=== PATIENT | male | born 1945 | race Two or more races ===

== ENCOUNTER 2022-07-30 13:11 | Inpatient (IN) | payer OTHER ==
[~2022-07-30] VITALS: Ht 172.7 cm; Wt 66.3 kg
[2022-07-30 14:15] LABS: Basophils # (auto) 0 10 ^3/uL (0-0.2); Basophils % (auto) 0.4 % (0.0-2.0); Eosinophils # (auto) 0.1 10 ^3/uL (0-0.8); Hematocrit 32.6 % (41.0-53.0); Hemoglobin 11.3 g/dL (13.5-17.5); Lymphocytes # (auto) 0.8 10 ^3/uL (0.4-5.4); Lymphocytes % (auto) 13.4 % (10.0-50.0); Mean Corpuscular Hemoglobin 31.8 pg (28.0-32.0); Mean Corpuscular Hgb Conc. 34.7 g/dL (32.0-36.0); Mean Corpuscular Volume 91.7 fL (80.0-100.0); Monocytes # (auto) 0.7 10 ^3/uL (0-1.3); Monocytes % (auto) 12.6 % (0.0-12.0); Neutrophils # (auto) 4.1 10 ^3/uL (1.6-8.6); Neutrophils % (auto) 72.6 % (37.0-80.0); Red Blood Cells 3.56 10^6/uL (4.5-5.90); Red Cell Distribution Width 14.2 % (11.8-14.3); White Blood Cell 5.7 10^3/uL (4.4-10.8)
[2022-07-30 14:32] LABS: Potassium 4.5 mmol/L (3.5-5.1)
[2022-07-30 14:38] LABS: Albumin 3.8 g/dL (3.4-5.0); Bilirubin, Total 0.5 mg/dL (0.2-1.0); Magnesium 2.3 mg/dL (1.6-2.6); Total Protein 6.7 g/dL (6.4-8.2)
[2022-07-30 14:46] LABS: CRP High Sensitivity 0.02 mg/dL (< 0.3)
[2022-07-30] MEDS ORDERED: SODIUM CHLORIDE 0.9% 1,000 ML IV ONE (15:00)
[2022-07-30] MEDS ORDERED: cefTRIAXone 1GM/50ML D5W 50 ML IV ONE (15:00)
[2022-07-30 16:36] LABS: Urine Bacteria FEW /hpf (None Seen); Urine Blood Negative /uL (Negative); Urine Specific Gravity 1.023 (1.001-1.035); Urine WBC <1 /hpf (0 - 3)
[2022-07-30] MEDS ORDERED: DOCUSATE SOD 100 MG CAP PO PRN (21:30)
[2022-07-30] MEDS ORDERED: ONDANSETRON HCL 4 MG/2 ML VIAL IV PRN (21:30)
[2022-07-30] MEDS ORDERED: HYDROcodone-ACET 5/325MG TAB PO PRN (21:30)
[2022-07-30] MEDS ORDERED: ACETAMINOPHEN 325 MG TAB PO PRN (21:30)
[2022-07-30] MEDS: CARBIDOPA W LEVODOPA 25/100mg TABLET PO SCH (22:00)
[2022-07-30] MEDS: SODIUM CHLORIDE 0.9% 1,000 ML IV SCH (22:46)
[2022-07-30] MEDS ORDERED: NITROGLYCERIN 0.4 MG SL TAB SL PRN (23:45)
[2022-07-30] MEDS ORDERED: MORPHINE SULFATE INJ 2 MG/ml SYRG IV PRN (23:45)
[2022-07-31] VITALS (7 sets, daily range): BP systolic 109–194; BP diastolic 59–108
[2022-07-31] MEDS: LEVOTHYROXINE SODIUM 25 MCG TAB PO SCH (05:47)
[2022-07-31] MEDS: CARBIDOPA W LEVODOPA 25/100mg TABLET PO SCH ×4 (05:47→21:05)
[2022-07-31] MEDS: hydrALAZINE HCL 20 MG/ML VL IV PRN ×2 (06:17→17:26)
[2022-07-31 07:01] LABS: Basophils # (auto) 0 10 ^3/uL (0-0.2); Basophils % (auto) 0.7 % (0.0-2.0); Eosinophils # (auto) 0.1 10 ^3/uL (0-0.8); Eosinophils % (auto) 1.7 % (0.0-7.0); Hematocrit 34.4 % (41.0-53.0); Lymphocytes # (auto) 0.7 10 ^3/uL (0.4-5.4); Mean Corpuscular Hemoglobin 31.9 pg (28.0-32.0); Mean Corpuscular Volume 91.2 fL (80.0-100.0); Monocytes # (auto) 0.6 10 ^3/uL (0-1.3); Monocytes % (auto) 10.3 % (0.0-12.0); Neutrophils # (auto) 4.7 10 ^3/uL (1.6-8.6); Neutrophils % (auto) 76.3 % (37.0-80.0); Nucleated Red Blood Cells % 0.1 %; Red Blood Cells 3.77 10^6/uL (4.5-5.90); Red Cell Distribution Width 14.2 % (11.8-14.3); White Blood Cell 6.2 10^3/uL (4.4-10.8)
[2022-07-31 07:33] LABS: Calcium 8.6 mg/dL (8.5-10.1); Potassium 3.9 mmol/L (3.5-5.1)
[2022-07-31 07:39] LABS: Albumin 3.6 g/dL (3.4-5.0); BUN/Creatinine Ratio 21.1 (10.0-20.0); Bilirubin, Total 0.7 mg/dL (0.2-1.0); Total Protein 6.8 g/dL (6.4-8.2)
[2022-07-31] MEDS ORDERED: CARB-80 PO (07:56)
[2022-07-31] MEDS ORDERED: LEVO25TA6 PO (07:56)
[2022-07-31] MEDS ORDERED: RASA1TAB4 PO (07:56)
[2022-07-31] MEDS: ENOXAPARIN SOD 30 MG/0.3 ML SYRINGE SC SCH (09:00)
[2022-07-31] MEDS: cefTRIAXone 1GM/50ML D5W 50 ML IV SCH (09:01)
[2022-07-31] MEDS: SODIUM CHLORIDE 0.9% 1,000 ML IV SCH (13:45)
[2022-07-31] MEDS ORDERED: SODIUM CHLORIDE 0.9% 500 ML IV ONE (19:45)
[2022-08-01] VITALS (7 sets, daily range): BP systolic 109–179; BP diastolic 60–98
[2022-08-01] MEDS: CARBIDOPA W LEVODOPA 25/100mg TABLET PO SCH ×4 (07:08→21:30)
[2022-08-01] MEDS: LEVOTHYROXINE SODIUM 25 MCG TAB PO SCH (07:08)
[2022-08-01] MEDS: SODIUM CHLORIDE 0.9% 1,000 ML IV SCH ×2 (07:08→09:18)
[2022-08-01] MEDS: cefTRIAXone 1GM/50ML D5W 50 ML IV SCH (09:19)
[2022-08-01] MEDS: ENOXAPARIN SOD 30 MG/0.3 ML SYRINGE SC SCH (09:29)
[2022-08-01] MEDS: ENALAPRILAT 1.25 MG/ML-1ML VIAL IV PRN ×4 (13:14→22:30)
[2022-08-01] MEDS: ADVIL PM PO SCH (21:30)
[2022-08-02] VITALS (7 sets, daily range): BP systolic 114–182; BP diastolic 51–94
[2022-08-02] MEDS: LEVOTHYROXINE SODIUM 25 MCG TAB PO SCH (06:09)
[2022-08-02] MEDS: CARBIDOPA W LEVODOPA 25/100mg TABLET PO SCH ×5 (06:09→22:48)
[2022-08-02] MEDS: ENALAPRILAT 1.25 MG/ML-1ML VIAL IV PRN (06:10)
[2022-08-02] MEDS: cefTRIAXone 1GM/50ML D5W 50 ML IV SCH (09:23)
[2022-08-02] MEDS: ENOXAPARIN SOD 30 MG/0.3 ML SYRINGE SC SCH (09:26)
[2022-08-02] MEDS: SODIUM CHLORIDE 0.9% 1,000 ML IV SCH (18:23)
[2022-08-02 20:19] LABS: Folate (Folic Acid) 18.51 ng/mL (5.38-24)
[2022-08-02] MEDS: SELEGILINE 5 MG PO SCH (22:00)
[2022-08-02] MEDS: ADVIL PM PO SCH (22:48)
[2022-08-03] MEDS: ENALAPRILAT 1.25 MG/ML-1ML VIAL IV PRN ×2 (04:25→09:26)
[2022-08-03] MEDS: SODIUM CHLORIDE 0.9% 1,000 ML IV SCH (04:32)
[2022-08-03 05:00] VITALS: BP 185/94
[2022-08-03] MEDS: LEVOTHYROXINE SODIUM 25 MCG TAB PO SCH (07:17)
[2022-08-03] MEDS: CARBIDOPA W LEVODOPA 25/100mg TABLET PO SCH ×4 (07:17→18:07)
[2022-08-03 08:10] VITALS: BP 165/81
[2022-08-03] MEDS: ENOXAPARIN SOD 30 MG/0.3 ML SYRINGE SC SCH (09:26)
[2022-08-03] MEDS: cefTRIAXone 1GM/50ML D5W 50 ML IV SCH (09:28)
[2022-08-03] MEDS ORDERED: LEVO500T31 PO (09:51)
[2022-08-03] MEDS: SELEGILINE 5 MG PO SCH (10:00)
[2022-08-03] MEDS ORDERED: CARB-80 PO (10:05)
[2022-08-03 12:10] VITALS: BP 124/57
[2022-08-03 16:10] VITALS: BP 142/70
[2022-08-04] MEDS ORDERED: ENOXAPARIN SOD 40 MG/0.4 ML SYRINGE SC SCH (10:00)
== END 2022-08-03 19:40 | disposition home health service (06) | DRG 194 ==
LOC: ER 13:11 → TELE 23:45 → TELE-CENTR 07-31 02:51
PROVIDERS: ADMIT Nurse Practitioner Family; ATTEND Internal Medicine Geriatric Medicine
DX: J18.9 Pneumonia, unspecified organism (principal); E87.1 Hypo-osmolality and hyponatremia; E03.9 Hypothyroidism, unspecified; E86.0 Dehydration; G20 Parkinson's disease; H53.2 Diplopia; I10 Essential (primary) hypertension
CPT/HCPCS: 36415; 70450; 71045; 72125; 80053; 81001; 82607; 82746; 82962; 83605; 83735; 84443; 84484; 85025; 86141; 93005; 93971; 96361; 96365; 96375; 97110; 97116; 97163; 97530; G0378; J0696

== ENCOUNTER 2023-06-09 14:51 | Inpatient (IN) | payer OTHER ==
[~2023-06-09] VITALS: Ht 172.7 cm; Wt 67.6 kg
[~2023-06-09 14:51] MED LIST: CARB-118 PO; LEVO25TA6 PO; LEVO500T31 PO; RASA1TAB4 PO
[2023-06-09 16:00] LABS: Urine Bacteria NONE SEEN /hpf (None Seen); Urine Blood Negative /uL (Negative); Urine Clarity Clear (Clear); Urine Color Yellow (Yellow); Urine Protein, UAD Negative (Negative); Urine Specific Gravity 1.024 (1.001-1.035); Urine Urobilinogen Normal (Negative); Urine WBC <1 /hpf (0 - 3); Urine pH 5.5 (5.0-8.0)
[2023-06-09 16:06] LABS: Basophils # (auto) 0 10 ^3/uL (0-0.2); Basophils % (auto) 0.5 % (0.0-2.0); Eosinophils # (auto) 0.1 10 ^3/uL (0-0.8); Eosinophils % (auto) 2.2 % (0.0-7.0); Hemoglobin 11.5 g/dL (13.5-17.5); Lymphocytes % (auto) 16.4 % (10.0-50.0); Mean Corpuscular Hemoglobin 32.4 pg (28.0-32.0); Mean Corpuscular Hgb Conc. 33.8 g/dL (32.0-36.0); Mean Corpuscular Volume 95.7 fL (80.0-100.0); Monocytes # (auto) 0.7 10 ^3/uL (0-1.3); Monocytes % (auto) 10.4 % (0.0-12.0); Neutrophils # (auto) 4.5 10 ^3/uL (1.6-8.6); Neutrophils % (auto) 70.5 % (37.0-80.0); Red Blood Cells 3.55 10^6/uL (4.5-5.90); Red Cell Distribution Width 14.7 % (11.8-14.3); White Blood Cell 6.4 10^3/uL (4.4-10.8)
[2023-06-09 16:13] LABS: Amphetamine Screen, Urine Neg (NEGATIVE); Barbiturate Scree,Urine Neg (NEGATIVE); Benzodiazephine Screen, Urine Neg (NEGATIVE); Cannabinoid Screen, Urine Neg (NEGATIVE); Cocaine Screen, Urine Neg (NEGATIVE); Opiate Scree,Urine Neg (NEGATIVE); Phencyclidine Screen, Urine Neg (NEGATIVE)
[2023-06-09 16:26] LABS: Albumin 4.2 g/dL (3.2-4.8); Alkaline Phosphatase 40 U/L (46-116); Anion Gap 2 (5-15); Aspartate Aminotransferase 29 U/L (13-40); BUN/Creatinine Ratio 33.7 (10.0-20.0); Blood Urea Nitrogen 28 mg/dL (9-23); Calcium 9.4 mg/dL (8.7-10.4); Carbon Dioxide 29 mmol/L (20-30); Chloride 103 mmol/L (98-107); Glucose 103 mg/dL (74-106); Magnesium 2.1 mg/dL (1.6-2.6); Potassium 4.4 mmol/L (3.5-5.1); Sodium 134 mmol/L (136-145)
[2023-06-09 16:27] LABS: Bilirubin, Total 0.4 mg/dL (0.2-1.0); Total Protein 6.7 g/dL (5.7-8.2)
[2023-06-09 16:29] LABS: Alanine Aminotransferase < 9 U/L (7-40)
[2023-06-09 16:41] LABS: Blood Alcohol < 3.0 mg/dL (<10)
[2023-06-10] VITALS (9 sets, daily range): BP systolic 120–179; BP diastolic 65–91; PULSE 70–95; RESP 16–20; TEMP 97.1–98.1; O2SAT 93–98
[2023-06-10] MEDS ORDERED: ACETAMINOPHEN 325 MG TAB PO PRN (00:15)
[2023-06-10] MEDS ORDERED: NITROGLYCERIN 0.4 MG SL TAB SL PRN (00:15)
[2023-06-10] MEDS ORDERED: ONDANSETRON HCL 4 MG/2 ML VIAL IV PRN (00:15)
[2023-06-10] MEDS ORDERED: MORPHINE SULFATE INJ 2 MG/ml SYRG IV PRN (00:15)
[2023-06-10] MEDS: SODIUM CHLORIDE 0.9% 1,000 ML IV SCH (00:15)
[2023-06-10 05:01] LABS: Basophils # (auto) 0 10 ^3/uL (0-0.2); Basophils % (auto) 0.4 % (0.0-2.0); Eosinophils # (auto) 0.2 10 ^3/uL (0-0.8); Eosinophils % (auto) 3.2 % (0.0-7.0); Hematocrit 34.4 % (41.0-53.0); Hemoglobin 11.9 g/dL (13.5-17.5); Lymphocytes % (auto) 16.6 % (10.0-50.0); Mean Corpuscular Hemoglobin 32.7 pg (28.0-32.0); Mean Corpuscular Hgb Conc. 34.5 g/dL (32.0-36.0); Mean Corpuscular Volume 94.8 fL (80.0-100.0); Monocytes # (auto) 0.6 10 ^3/uL (0-1.3); Monocytes % (auto) 9.7 % (0.0-12.0); Neutrophils # (auto) 4.2 10 ^3/uL (1.6-8.6); Neutrophils % (auto) 70.1 % (37.0-80.0); Red Blood Cells 3.63 10^6/uL (4.5-5.90); Red Cell Distribution Width 14.4 % (11.8-14.3); White Blood Cell 5.9 10^3/uL (4.4-10.8)
[2023-06-10 05:18] LABS: Albumin 4.2 g/dL (3.2-4.8); Alkaline Phosphatase 40 U/L (46-116); Aspartate Aminotransferase 31 U/L (13-40); BUN/Creatinine Ratio 25.3 (10.0-20.0); Bilirubin, Total 0.6 mg/dL (0.2-1.0); Blood Urea Nitrogen 19 mg/dL (9-23); Calcium 9.4 mg/dL (8.5-10.1); Carbon Dioxide 30 mmol/L (20-30); Chloride 105 mmol/L (98-107); Glucose 88 mg/dL (74-106); Potassium 3.8 mmol/L (3.5-5.1); Sodium 134 mmol/L (136-145); Total Protein 6.7 g/dL (5.7-8.2)
[2023-06-10 05:20] LABS: Alanine Aminotransferase < 9 U/L (7-40); Anion Gap -1 (5-15)
[2023-06-10] MEDS: CARBIDOPA W LEVODOPA 25/100mg TABLET PO SCH ×3 (06:01→21:19)
[2023-06-10] MEDS: LEVOTHYROXINE SODIUM 25 MCG TAB PO SCH (06:04)
[2023-06-10] MEDS: hydrALAZINE HCL 20 MG/ML VL IV PRN (06:47)
[2023-06-10] MEDS: HYDROcodone-ACET 5/325MG TAB PO PRN (11:02)
[2023-06-10] MEDS ORDERED: CARBIDOPA W LEVODOPA 25/100mg TABLET PO SCH ×2 (12:00→21:00)
[2023-06-10 21:25] LABS: COVID19 ANTIGEN SOFIA FIA NEGATIVE (NEGATIVE); Rapid Influenza A Negative (Negative); Rapid Influenza B Negative (Negative)
[2023-06-10] MEDS: MIRTAZAPINE 30 MG TAB PO PRN (23:01)
[2023-06-11 06:17] LABS: Basophils # (auto) 0 10 ^3/uL (0-0.2); Basophils % (auto) 0.2 % (0.0-2.0); Eosinophils # (auto) 0.1 10 ^3/uL (0-0.8); Eosinophils % (auto) 0.8 % (0.0-7.0); Hematocrit 35.7 % (41.0-53.0); Hemoglobin 12.1 g/dL (13.5-17.5); Lymphocytes # (auto) 0.6 10 ^3/uL (0.4-5.4); Mean Corpuscular Hemoglobin 32.6 pg (28.0-32.0); Mean Corpuscular Volume 95.9 fL (80.0-100.0); Monocytes # (auto) 0.8 10 ^3/uL (0-1.3); Neutrophils # (auto) 8.7 10 ^3/uL (1.6-8.6); Red Blood Cells 3.72 10^6/uL (4.5-5.90); White Blood Cell 10.3 10^3/uL (4.4-10.8)
[2023-06-11 06:24] LABS: Albumin 4.3 g/dL (3.2-4.8); Alkaline Phosphatase 42 U/L (46-116); Anion Gap 6 (5-15); Aspartate Aminotransferase 31 U/L (13-40); BUN/Creatinine Ratio 19.6 (10.0-20.0); Blood Urea Nitrogen 20 mg/dL (9-23); Calcium 9.2 mg/dL (8.7-10.4); Carbon Dioxide 26 mmol/L (20-30); Chloride 101 mmol/L (98-107); Glucose 122 mg/dL (74-106); Potassium 3.7 mmol/L (3.5-5.1); Sodium 133 mmol/L (136-145)
[2023-06-11 06:25] LABS: Bilirubin, Total 1.4 mg/dL (0.2-1.0); Total Protein 7.1 g/dL (5.7-8.2)
[2023-06-11 06:30] LABS: Alanine Aminotransferase < 9 U/L (7-40)
[2023-06-11] MEDS ORDERED: MIRT1TAB38 PO (10:08)
[2023-06-11] MEDS ORDERED: ENTA200T PO (10:09)
[2023-06-11 13:00] VITALS: BP 103/50; PULSE 89; RESP 20; TEMP 97.5; O2SAT 98
[2023-06-12 05:00] VITALS: BP 148/68; PULSE 79; RESP 17; TEMP 97.7; O2SAT 98
[2023-06-12 09:00] VITALS: BP 90/39; PULSE 78; RESP 17; TEMP 98; O2SAT 98
[2023-06-12 10:40] VITALS: BP 135/65; PULSE 82
[2023-06-12 13:00] VITALS: BP 104/54; PULSE 80; RESP 18; TEMP 97.7; O2SAT 98
[2023-06-12 17:00] VITALS: BP 144/74; PULSE 81; RESP 18; TEMP 98; O2SAT 98
[2023-06-12 22:00] VITALS: BP 165/77; PULSE 78; RESP 17; TEMP 97.7; O2SAT 97
[2023-06-13 05:00] VITALS: BP 141/63; PULSE 78; RESP 16; TEMP 97.7; O2SAT 96
[2023-06-13 08:00] VITALS: BP 129/59; PULSE 74; RESP 16; TEMP 97.7; O2SAT 97
[2023-06-13 08:44] VITALS: BP 129/59; PULSE 74; RESP 16; TEMP 97.7; O2SAT 97
[2023-06-13] MEDS: DOCUSATE SOD 100 MG CAP PO PRN (09:29)
[2023-06-13 13:00] VITALS: BP 136/70; PULSE 67; RESP 16; TEMP 98.1; O2SAT 99
[2023-06-13 17:00] VITALS: BP 138/74; PULSE 80; RESP 16; TEMP 98.2; O2SAT 99
[2023-06-13 20:00] VITALS: BP 179/91; TEMP 36.8
[2023-06-14] VITALS (8 sets, daily range): BP systolic 95–167; BP diastolic 46–81; PULSE 74–89; RESP 15–19; TEMP 97.6–98.6; O2SAT 96–98
[2023-06-15] MEDS: TEMAZEPAM 15 MG CAP PO ONE (00:40)
[2023-06-15 05:00] VITALS: BP 139/75; PULSE 72; RESP 17; TEMP 97.7; O2SAT 97
[2023-06-15 08:10] VITALS: BP 133/61; PULSE 75; RESP 14; TEMP 97.6
[2023-06-15 09:00] VITALS: BP 133/61; PULSE 75; RESP 14; TEMP 97.6; O2SAT 95
[2023-06-15 13:00] VITALS: BP 107/52; PULSE 71; RESP 16; TEMP 98.1; O2SAT 98
[2023-06-15 16:18] VITALS: BP 107/52; PULSE 71; RESP 16; TEMP 98.1; O2SAT 98
[2023-06-15 17:00] VITALS: BP 151/78; PULSE 75; RESP 16; TEMP 98.3; O2SAT 97
[2023-06-22] MEDS ORDERED: PRAM0.373 PO (16:53)
[2023-06-22] MEDS ORDERED: AMLO1TAB22 PO (16:53)
== END 2023-06-15 19:50 | disposition home or self-care (01) | DRG 56 ==
LOC: ER 14:51 → EAST 06-10 00:15 → OVERFLOW 06-10 00:15 → EAST 06-10 04:52
PROVIDERS: ADMIT Nurse Practitioner Family; ATTEND Internal Medicine Geriatric Medicine
DX: G20.A1 Parkinson's disease without dyskinesia, without mention of fluctuations (principal); G92.9 Unspecified toxic encephalopathy; E87.1 Hypo-osmolality and hyponatremia; Z20.822 Contact with and (suspected) exposure to COVID-19; E86.0 Dehydration; G47.00 Insomnia, unspecified; I10 Essential (primary) hypertension; T42.8X5A Adverse effect of antiparkinsonism drugs and other central muscle-tone depressants, initial encounter; Z79.899 Other long term (current) drug therapy; Z88.6 Allergy status to analgesic agent; Y92.89 Other specified places as the place of occurrence of the external cause
CPT/HCPCS: 36415; 70450; 71045; 80053; 80307; 80320; 81001; 83735; 84443; 84484; 85025; 87426; 87804; 97110; 97116; 97163; 97530; G0378

== ENCOUNTER 2024-03-06 16:34 | Emergency (ER) | payer OTHER ==
[~2024-03-06] VITALS: Ht 172.7 cm; Wt 59.0 kg
[~2024-03-06 16:34] MED LIST changes: +AMLO1TAB22 PO; +ENTA200T PO; -LEVO500T31 PO; +MIRT1TAB38 PO; -RASA1TAB4 PO
[2024-03-06 17:05] VITALS: BP 101/47; PULSE 67; RESP 16; O2SAT 98
--- NOTE | 2024-03-06 17:13 | ED.PDOC ---
Altered Mental Status HPI Comments 79-year-old male brought in by [id number] from his assisted living facility for evaluation of multiple syncopal episodes today. Patient's [id number] states he has been having syncopal episodes every few days for the past 3 weeks, however today he had multiple episodes, which is not normal for him. He was seen by his neurologist Dr. Jenkins in the office today, and was referred to the ER due to hypotension, multiple episodes of syncope, sleep attacks. Patient's cayulsok-pk-sff states during 1 of the episodes today he was seated in a chair, lost consciousness, fell out of the chair and hit his head. Per the facility staff, these episodes last about 10 minutes, then the patient will regained consciousness with tactile stimulation. Patient currently denies any headache, dizziness or new focal weakness. He does complain of chronic low back pain, but he states this has not changed since the onset of his other symptoms. Chief Complaint: Syncope Time Seen by MD: 16:38 Primary Care Provider: ANAMARIA Allergies: Coded Allergies: Aspirin (Verified Allergy, Severe, 07/30/22) Home Meds Active Scripts Entacapone (Comtan) 200 Mg Tab, 200 MG PO Q4HWA for 30 Days, #150 TAB Prov:OTILIA SUAZO MD 06/11/23 Mirtazapine (Mirtazapine Oral Disintegrating Tablet) 15 Mg Tab, 1 TAB PO QPM, #30 TAB 0 Refills Prov:OTILIA SUAZO MD 06/11/23 Levodopa W/Carbidopa (Sinemet) 25 /100 Tab, 1 TAB PO 5 times a day, #150 TAB 3 Refills Prov:OTILIA SUAZO MD 08/03/22 Reported Medications Amlodipine Besylate (Amlodipine Besylate) 5 Mg Tab, 2.5 MG PO DAILY 06/22/23 Levothyroxine Sodium (Levothyroxine Sodium) 25 Mcg Tab, 25 MCG PO QAM, MCG 07/31/22 Mode of Arrival: Wheelchair Past Medical History Past Medical History (Other): Parkinson's Surgical History: Denies all surgeries Family History Family History: Reviewed,noncontributory to illness Social History Smoker: Non-Smoker Alcohol: Denies ETOH Use Drugs: Denies Drug Use Lives In: Assisted Care All Other Systems: Reviewed and Negative (Comprehensive systems review obtained and negative except for what is stated in the HPI.) Physical Exam General Appearance: No Apparent Distress, Thin, Other (Chronically ill- appearing) HEENT: Other (Pupils symmetric, no facial asymmetry, extraocular movements intact. No head/facial soft tissue swelling, bruising or tenderness.) Neck: Non-Tender, Normal Inspection, Supple Respiratory: Chest Non-Tender, Lungs Clear, No Accessory Muscle Use, No Respiratory Distress, Normal Breath Sounds Cardiovascular: No Edema, No JVD, Regular Rate/Rhythm Breast Exam: Deferred Gastrointestinal: Non Tender, Soft Genitalia: Deferred Pelvic: Deferred Rectal: Deferred Extremities: Non-tender, No pedal edema, Other (Able to move all extremities.) Neurologic: Alert (Oriented x4), Other (Bilateral upper and lower extremity strength 4/5, equal curator, light touch sensation grossly intact. No gross focal deficit) Cerebellar Function: NOT DONE Reflexes: NOT DONE Skin: Dry, Pallor, Other (Superficial abrasions on bilateral knees. Nontender.) Lymphatic: NOT DONE EKG EKG : Comments Sinus rhythm, rate 64, normal IL and QRS intervals, QTC 462, normal axis, normal QRS, no ST/T changes. Was a procedure done? Was a procedure done?: No Differential Diagnosis (ALOC) Differential Diagnosis: Dehydration, Hypoglycemia, Encephalopathy, Sepsis, Seizure, Closed Head Injury, CVA, Mass Lesion, SAH, Other (Vasovagal syncope, hypotension, arrhythmia, GA, PE, among others) X-Ray, Labs, Meds, VS Vital Signs Date Time Temp Pulse Resp B/P (MAP) Pulse Ox O2 Delivery O2 Flow Rate FiO2 03/06/24 17:05 98.4 67 16 101/47 (65) 98 03/06/24 16:59 64 Lab Test 03/06/24 16:49 Range/Units POC Glucose 117 H 70-106 mg/dl X-Ray, Labs, Meds, VS Comment 79-year-old male with a history of Parkinson's brought in by [id number] from his living facility for evaluation of multiple syncopal episodes and an associated head injury today. Patient was seen by Dr. Jenkins and referred to the ER for admission. Vitals remarkable for BP 101/47 Exam remarkable for 4/5 strength in all extremities. Rhythm strip independently interpreted by me sinus rhythm, rate 64, no ectopy. Accu-Chek 117 Preliminary workup including CBC, basic metabolic panel, BNP, troponin, chest x- ray and CT of the brain were ordered, however the patient's [id number]-qi-raa who is his jdjbt-yo-votkeuwu for health care stated that she was concerned the patient would not be placed in a bed timely manner, and expressed that she would like to sign the patient out AMA. I advised the patient's daughter that the plan was for hospital admission at the request of Dr. Jenkins, and that signing patient out against medical advice prior to completion of workup could result in a missed severe condition or . She expressed understanding and insisted on signing the patient out against medical advice. After the patient left AMA, I discussed the case briefly with Dr. Jenkins to advise him that the patient had left. Time of 1ST Reevaluation: 17:00 Reevaluation 1ST: Unchanged Patient Education/Counseling: Treatment, Need For Follow Up Family Education/Counseling: Treatment, Need For Follow Up Departure 1 Departure Time of Disposition: 17:00 Impression: Primary Impression: Recurrent syncope Additional Impression: Hypotension Qualified Codes: I95.9 - Hypotension, unspecified Disposition: 07 LEFT AGAINST MEDICAL ADVICE Condition: Serious Critical Care Note Critical Care Time?: No Stability Stability form required: No Heart Score Heart Score: Heart Score Response (Comments) Value History N/A 0 EKG N/A 0 Age N/A 0 Risk Factors N/A 0 Troponin N/A 0 Total 0 I personally scribed for SH[facility]NA [facility] on 03/06/24 at 17:13. Electronically submitted by Breezy LIRA). SHARON DE LUNA MD Mar 06, 2024 17:13
--- NOTE | 2024-03-06 17:30 | DVH ---
EXAM: XY CHEST PORTABLE TECHNIQUE: Single frontal chest radiograph CLINICAL HISTORY: syncope COMPARISON: XY CHEST PORTABLE on DOS: 06/09/23, XY CHEST PORTABLE on DOS: 07/30/22 Findings/Impression: Frontal chest radiograph demonstrates no acute osseous or superficial soft tissue abnormalities. The trachea is midline. The cardiac silhouette and mediastinum are within normal limits. Unchanged right mid to lower lung field patchy opacity favored atelectasis versus scarring. No pneumothorax or pleural effusions.
--- NOTE | 2024-03-06 17:47 | DVH ---
CLINICAL HISTORY: syncope TECHNIQUE: Helical imaging carried out from skull base to vertex without intravenous contrast. This e xam was performed according to our departmental dose optimization program. Up-to-date CT equipment an d radiation dose reduction techniques are utilized as appropriate. CTDIVol: [CTDIvol] mGy DLP: 1098.39 mGy-cm WID: COMPARISON: CT HEAD WITHOUT CONTRAST on DOS: 06/09/23 FINDINGS: Mild cerebral volume loss with concordant prominence of the subarachnoid spaces and ventricles. There is mild patchy low attenuation throughout the cerebral white matter consistent with nonspecific whit e matter disease. There is no midline shift or mass effect. The sherman white matter interfaces are maintained. The basal cisterns are patent. There is no evidence of acute intracranial hemorrhage or extra-axial fluid carlos alberto ection. Diffuse right mastoid air cell effusion and patchy opacification of the right middle ear cavi ty as well as opacification of the right petrous apex. The left mastoid air cells and visualized para nasal sinuses are well-aerated. IMPRESSION: 1. No acute intracranial abnormality. 2. Mild cerebral volume loss and minor chronic microvascular ischemic change. 3. Right mastoid air cell effusion and opacification of the right petrous apex and mild opacification of the right middle ear cavity. This could reflect otomastoiditis
--- NOTE | 2024-03-07 10:39 | ECG ---
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
--- NOTE | 2024-03-07 13:36 | ECG ---
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
== END 2024-03-06 17:26 | disposition left against medical advice (07) ==
LOC: ER 16:34
DX: S80.212A Abrasion, left knee, initial encounter (principal); S80.211A Abrasion, right knee, initial encounter; I95.9 Hypotension, unspecified; M54.50 Low back pain, unspecified; R55 Syncope and collapse; G20.A1 Parkinson's disease without dyskinesia, without mention of fluctuations; Z88.6 Allergy status to analgesic agent; Z79.899 Other long term (current) drug therapy; W07.XXXA Fall from chair, initial encounter; Y93.89 Activity, other specified; Y92.89 Other specified places as the place of occurrence of the external cause; Y99.8 Other external cause status
CPT/HCPCS: 70450; 71045; 82962; 93005